=== PATIENT | female | born 1995 | race Two or more races ===

== ENCOUNTER 2023-06-24 19:10 | Emergency (ER) | payer MEDICAID ==
[~2023-06-24] VITALS: Ht 160 cm; Wt 73.0 kg
[2023-06-24 19:15] VITALS: PULSE 74
[2023-06-24 19:36] VITALS: BP 107/40; RESP 18; TEMP 98.1; O2SAT 98
[2023-06-24] MEDS ORDERED: KETOROLAC 15MG/ML VIAL IM ONE (21:45)
[2023-06-24] MEDS ORDERED: NAPR-1176 MT (21:56)
[2023-06-24] MEDS ORDERED: LIDO700A15 TP (21:56)
== END 2023-06-24 22:07 | disposition home or self-care (01) ==
LOC: ER 19:10
DX: M25.511 Pain in right shoulder (principal)
CPT/HCPCS: 99283; 73030; J1885